=== PATIENT | male | born 1985 | race Caucasian/White ===

== ENCOUNTER 2024-02-10 11:06 | Emergency (ER) | payer OTHER, SELFPAY ==
[2024-02-10 11:08] VITALS: BP 127/78
[2024-02-10] MEDS: PEPCID 20 MG IV (11:54)
[2024-02-10] MEDS: DECADRON 10 MG IV (11:55)
[2024-02-10 13:00] VITALS: BP 117/80
--- NOTE | 2024-02-10 13:04 | ED.GENMED ---
History of Present Illness
General
Chief Complaint: Allergic Reaction
Source: patient
Exam Limitations: none
Time Seen by Provider: 02/10/24 11:36
Nursing documentation reviewed up to this point in time: agreed with
History of Present Illness
History of Present Illness:
38-year-old male presenting to the emergency department today with concerns of throat swelling after eating a food containing almonds. 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 He
did not have an EpiPen with him. He did have Zyrtec he took this and came to the ER. Denies any hives abdominal pain shortness of breath nausea vomiting or lightheadedness.
Review of Systems
Review of Systems
Allergies reviewed?: Yes
All Other Systems: ROS reviewed and negative except as documented in HPI and ROS
Phy Exam
Physical Exam
Physical Exam:
GENERAL: Alert , in no apparent distress
EYE: pupils equal and reactive
NECK: Supple, no significant adenopathy.
ENT: Swollen uvula but otherwise patent posterior pharynx o/p clr, mmm.
CARDIAC: Regular rate and rhythm .
LUNGS: Clear breath sounds bilaterally, no acute respiratory distress, no wheezes/rales/rhonchi
ABDOMEN: Soft, without focal tenderness, no r/g, no cvat
NEUROLOGICAL: Alert and oriented, no focal neuro deficits
SKIN: Warm and dry, skin intact.
MUSCULOSKELETAL: No edema, well perfused.
PSYCH: Normal and appropriate interaction.
Course
Orders/Labs/Results
Orders:
Orders
02/10/24 11:44
Dexamethasone Sod Phosphate [Decadron] 10 mg IV NOW STA
Famotidine [Pepcid] 20 mg IV NOW STA
Vital Signs
Initial and Last Documented VS:
Initial Vital Signs
Temp Pulse Resp BP Pulse Ox
98.3 F 84 18 127/78 98
02/10/24 11:08 02/10/24 11:08 02/10/24 11:08 02/10/24 11:08 02/10/24 11:08
Last Documented Vital Signs
Temp Pulse Resp BP Pulse Ox
98.3 F 80 20 127/78 99
02/10/24 11:08 02/10/24 12:31 02/10/24 12:31 02/10/24 11:08 02/10/24 12:31
MDM/Problems Addressed
MDM/Problems Addressed:
38-year-old male presenting to the emergency department today with concerns of swelling of his throat after consuming almonds. Does have a history of allergy to this. Vital signs are normal. Patient speaking clearly patient does have some
swelling to the uvula but grossly patent airway no rash no abdominal pain no nausea vomiting no wheezing. Patient was treated with a steroid as well as famotidine. Observed here for 2 hours with improving symptoms. Stable for outpatient
management. Return precautions given.
*Critical Care Note
Total Time (30-74mins, 75-104mins- exclusive of procedures): Not Applicable
ED Attending Note
-
Portions of this chart may have been created with voice recognition software.� Occasional wrong word or��sound alike� substitutions may have occurred due to the inherent limitations of voice recognition software.
Discharge Plan
Departure
Patient Disposition: Home (Routine Discharge)
Date of Disposition: 02/10/24
Time of Disposition: 13:05
Patient with high blood pressure during this ER visit?: No
Condition: Good
Covid-19: Not Applicable
Discharge Problem:
Allergic reaction
Instructions: Allergic Reaction ED
Prescriptions:
New
prednisone 20 mg tablet
40 mg PO DAILY 4 Days Qty: 8 0RF
famotidine 20 mg tablet
20 mg PO BID 4 Days Qty: 8 0RF
No Action
fluticasone propionate [Flonase] 50 mcg/actuation [place],Suspension
1 spray INTRANASAL BID
fluticasone furoate-vilanterol [Breo Ellipta] 100-25 mcg/dose Blister With Device
1 inh INHALATION DAILY
montelukast [Singulair] 10 mg Tablet
10 mg PO QPM
Referrals:
Osei Tesfaye MD [Family Provider] -
Activity Restrictions/Additional Instructions:
You came to the emergency department today after an allergic reaction. Here you are given steroids and antihistamines with improving symptoms over the few hours you were here. Please take the prescribed medications over the next few days and
return for any worsening, new or concerning symptoms.
Interventions
Interventions:
*Risk Screen - Suicide Last Done: 02/10/24 11:08
*General Assessment Last Done: 02/10/24 11:08
*Neglect/Abuse Screening Last Done: 02/10/24 11:08
ED- Cardiac Assessment Last Done: 02/10/24 12:05
ED- Pulmonary Assessment Last Done: 02/10/24 12:05
ED-Skin Assessment Last Done: 02/10/24 12:05
Discharge Date and Time
Print Language: BELGIAN
== END 2024-02-10 13:55 | disposition home or self-care (01) ==
LOC: EMR 11:06
PROVIDERS: EMERGENCY PHYSICIAN Emergency Medicine; FAMILY PHYSICIAN Family Medicine
DX: T78.1XXA Other adverse food reactions, not elsewhere classified, initial encounter (principal); R22.1 Localized swelling, mass and lump, neck; R13.10 Dysphagia, unspecified; Z88.1 Allergy status to other antibiotic agents; Z91.018 Allergy to other foods
CPT/HCPCS: 99284; 96374; 96375